=== PATIENT | female | born 1930 | race Hispanic/Latino ===

== ENCOUNTER 2018-02-12 06:46 | Day surgery (SDC) | payer MEDICARE, BC ==
[2013-04-30 07:30] VITALS: BMI 31.7
[2018-02-12] MEDS ORDERED: Propofol 10 mg/ml Inj (20 ML) ONE ×2 (09:43→10:11)
--- NOTE | 2018-02-12 09:50 | CP.SDSHP ---
Same Day Surgery H & P - History Proposed Procedure: colonoscopy Pre-Op Diagnosis: anemia - Previous Medical/Surgical History Cardiac: Hypertension, Arrhythmia Endocrine/Metabolic: Diabetes - Allergies Allergies: Allergies lidocaine Allergy (Verified 02/11/18 14:54) RASH - Physical Exam Vital Signs: Vital Signs 02/12/18 07:19 Temperature 98.4 F Pulse Rate 65 Respiratory 19 Rate Blood Pressure 126/39 L O2 Sat by Pulse 97 Oximetry Mental Status: Alert & Oriented x3 Neuro: WNL Heart: WNL Lungs: WNL GI: WNL - {Optional Preform as Required} Abdomen: WNL - Impression Impression: anemia Pt. Evaluated Today:Candidate for Anesthesia & Procedure: Yes - Date & Time Date: 02/12/18 Time: 09:40 Short Stay Discharge - Short Stay Discharge Admitting Diagnosis/Reason for Visit: POLYP OF COLON Disposition: HOME/ ROUTINE
[2018-02-12 10:36] VITALS: TEMP 97.7
[2018-02-12 12:41] VITALS: PULSE 55; RESP 24
[2018-02-12 12:47] VITALS: BP 121/55; O2SAT 99
--- NOTE | 2018-02-13 23:41 | CARD ---
APPROVED REPORT EKG Measurement Heart [id number] <Conclusion> Atrial fibrillation with slow ventricular response Left axis deviation Incomplete right bundle branch block Nonspecific T wave abnormality Low voltage Abnormal ECG
== END 2018-02-12 11:40 | disposition home or self-care (01) ==
LOC: C.ENDO 06:46
PROVIDERS: ATTEND Internal Medicine Gastroenterology
DX: K63.5 Polyp of colon (principal); D12.0 Benign neoplasm of cecum; E11.9 Type 2 diabetes mellitus without complications; I10 Essential (primary) hypertension; K57.90 Diverticulosis of intestine, part unspecified, without perforation or abscess without bleeding; K64.9 Unspecified hemorrhoids; D64.9 Anemia, unspecified
CPT/HCPCS: 45384; 82948; 88305; 93005; J2704

== ENCOUNTER 2018-11-30 13:38 | Outpatient (CLI) | payer MEDICARE, BC | END 2018-11-30 13:39 | disposition home or self-care (01) | LOC: C.CTH 13:38 ==

== ENCOUNTER 2019-02-24 10:40 | Outpatient (CLI) | payer MEDICARE, BC | END 2019-02-24 10:41 | disposition home or self-care (01) | LOC: C.PAT 10:40 ==